=== PATIENT | female | born 1950 | race Hispanic/Latino ===

== ENCOUNTER 2020-12-18 11:56 | Emergency (ER) | payer MEDICARE, MEDICAID ==
[~2020-12-18 11:56] MED LIST: ATENOLOL25 MG PO; CIPROFLOXACN500 MG PO; LOPRESSOR 550 MG/TAB PO; LOTRISONE TOP; METOPROLOL TART50 MG PO; TRAMADOL HCL50 MG PO; UNKNOWN BP MED PO; ZANTAC150 M1 PO
[2020-12-18] MEDS ORDERED: ATORVASTATIN CA20 MG PO (12:36)
[2020-12-18] MEDS ORDERED: CALCIUM 600+D31 TA1 PO (12:38)
[2020-12-18] MEDS ORDERED: LOPRESSOR50 M1 PO (12:39)
[2020-12-18] MEDS ORDERED: LISINOPRIL10 MG PO (12:39)
[2020-12-18] MEDS ORDERED: POTASSIUM CHLO10 MEQ PO (12:44)
[2020-12-18] MEDS ORDERED: CITALOPRAM10 MG PO (12:45)
[2020-12-18] MEDS ORDERED: TRAMADOL HCL50 MG PO (12:46)
[2020-12-18] MEDS ORDERED: NEURONTIN300 MG PO (12:47)
[2020-12-18] MEDS ORDERED: DICLOFENAC SODIUM1 % TOP (12:48)
[2020-12-18 13:10] VITALS: BP 177/74
== END 2020-12-18 13:10 | disposition home or self-care (01) ==
LOC: ED 11:56
DX: U07.1 COVID-19 (principal); I10 Essential (primary) hypertension; E78.5 Hyperlipidemia, unspecified; F17.200 Nicotine dependence, unspecified, uncomplicated

== ENCOUNTER 2020-12-25 13:44 | Emergency (ER) | payer MEDICARE, MEDICAID ==
[~2020-12-25 13:44] MED LIST changes: +ATORVASTATIN CA20 MG PO; +CALCIUM 600+D31 TA1 PO; +CITALOPRAM10 MG PO; +DICLOFENAC SODIUM1 % TOP; +LISINOPRIL10 MG PO; +LOPRESSOR50 M1 PO; +NEURONTIN300 MG PO; +POTASSIUM CHLO10 MEQ PO
[2020-12-25 16:29] LABS: HEMATOCRIT 41.2 % (37.0-47.0); HEMOGLOBIN 13.1 g/dl (12.0-16.0); IMMATURE GRANULOCYTES 0.7 % (0.0-5.0); MEAN CELL VOLUME 96.5 fL CALC (80.0-100.0); MEAN CORPUSCULAR HGB 30.7 pG CALC (26.0-32.0); MEAN CORPUSCULAR HGB CONC 31.8 g/dL CAL (32.0-36.0); NEUT# 3.68 thou/uL (2.00-7.15); RED BLOOD COUNT 4.27 mill/uL (4.20-5.60); RED CELL DISTRI WIDTH 14.2 % (11.5-15.5)
[2020-12-25 17:08] LABS: ALBUMIN 4.2 g/dL (3.2-5.0); ALKALINE PHOSPHATASE 65 u/l (38-126); BILIRUBIN, TOTAL 0.9 mg/dL (0.0-1.4); BUN 32 mg/dL (8-23); BUN/CREATININE RATIO 36 (12-20 (CALC)); CHLORIDE 102 mmol/l (95-108); CREATININE 0.9 mg/dL (0.5-1.0); GFR > 60 ML/MIN (>=60 (CALC)); GFR FOR AFR.AMER. > 60 ML/MIN (>=60 (CALC)); POTASSIUM 4.8 mmol/l (3.5-5.1); SODIUM 137 mmol/l (137-146); TOTAL PROTEIN 8.2 g/dL (6.3-8.2)
[2020-12-25 17:09] LABS: ANION GAP 17 (6-22 (CALC)); CARBON DIOXIDE 23 mmol/l (22-30); SGOT/AST 43 u/l (9-36)
[2020-12-25] MEDS ORDERED: ZPAK PO (19:14)
[2020-12-25] MEDS ORDERED: MEDDOSEPAK PO (19:14)
[2020-12-25 19:28] VITALS: BP 177/81
== END 2020-12-25 19:43 | disposition home or self-care (01) ==
LOC: ED 13:44
PROVIDERS: Emergency Medicine
DX: U07.1 COVID-19 (principal); J12.82 Pneumonia due to coronavirus disease 2019; I10 Essential (primary) hypertension; E78.5 Hyperlipidemia, unspecified; F17.200 Nicotine dependence, unspecified, uncomplicated; Z87.442 Personal history of urinary calculi
CPT/HCPCS: Q9967